=== PATIENT | male | born 1990 | race African-American/Black ===

== ENCOUNTER 2018-02-11 22:04 | Emergency (ER) | payer MEDICAID ==
[~2018-02-11] VITALS: Ht 182.9 cm; Wt 100.0 kg
[2018-02-11 22:24] LABS: MEAN CORPUSCULAR HEMOGLOBIN 29.9 pg (27.5-34.5); MEAN CORPUSCULAR HGB CONC 33.2 g/dL (33.2-36.2); MEAN CORPUSCULAR VOLUME 89.8 fL (81-97); MEAN PLATELET VOLUME 8.4 fL (7.4-10.4); PLATELET COUNT 194 x10^3/uL (130-400); RED BLOOD COUNT 4.86 x10^6/uL (4.38-5.82); RED CELL DISTRIBUTION WIDTH 15.3 % (9.4-14.8)
[2018-02-11] MEDS ORDERED: FAMOTIDINE 20 MG/2 ML IVP ONE (22:30)
[2018-02-11] MEDS ORDERED: PROMETHAZINE 25 MG/ML, 1ML IM ONE (22:30)
[2018-02-11] MEDS ORDERED: MAALOX/HYOSCYAMINE/LIDOCAINE 45 ML BTL PO ONE (22:30)
[2018-02-11] MEDS ORDERED: ONDANSETRON 2MG/ML, 2ML IVPush ONE (22:30)
[2018-02-11] MEDS ORDERED: ONDANSETRON 2MG/ML, 2ML ONE (22:33)
[2018-02-11] MEDS ORDERED: FAMOTIDINE 20 MG/2 ML ONE (22:34)
[2018-02-11] MEDS ORDERED: MAALOX/HYOSCYAMINE/LIDOCAINE 45 ML BTL ONE (22:34)
[2018-02-11] MEDS ORDERED: PROMETHAZINE 25 MG/ML, 1ML ONE (22:34)
[2018-02-11 22:36] LABS: ALANINE AMINOTRANSFERASE 18 U/L (12-78); ALBUMIN 4.1 g/dL (3.4-5.0); ANION GAP 8 mmol/L (5-15); CALCIUM 9.5 mg/dL (8.5-10.1); CHLORIDE 109 mmol/L (98-107)
[2018-02-11 22:39] LABS: ALKALINE PHOSPHATASE 63 U/L (45-117); BILIRUBIN,TOTAL 0.2 mg/dL (0.2-1.0); CREATININE 1.09 mg/dL (0.7-1.3); TOTAL PROTEIN 8.3 g/dL (6.4-8.2)
[2018-02-11 22:48] LABS: BASOPHILS # (AUTO) 0.04 x10^3/uL (0-0.1); BASOPHILS % (AUTO) 0 % (0-1); EOSINOPHILS % (AUTO) 0 % (1-7); LYMPHOCYTES # (AUTO) 0.75 x10^3/uL (1-3.4); LYMPHOCYTES % (AUTO) 7 % (22-44); MD SCAN; MONOCYTES # (AUTO) 0.24 x10^3/uL (0.2-0.8); MONOCYTES % (AUTO) 2 % (2-9); NEUTROPHILS # (AUTO) 10.19 x10^3/uL (1.8-6.8); NEUTROPHILS % (AUTO) 91 % (42-75)
[2018-02-11] MEDS ORDERED: OMNIPAQUE 350 MG/ML, 100ML BOTTLE ONE (23:01)
[2018-02-11] MEDS ORDERED: PROM25SU34 RC (23:13)
[2018-02-11] MEDS ORDERED: SUCR1TAB33 PO (23:13)
[2018-02-12 00:29] VITALS: BP 125/84
== END 2018-02-12 00:31 | disposition home or self-care (01) ==
LOC: ED 22:19
DX: K29.00 Acute gastritis without bleeding (principal); Z87.891 Personal history of nicotine dependence; Z79.899 Other long term (current) drug therapy
CPT/HCPCS: 36415; 74022; 74177; 80053; 80307; 83690; 85025; 86677; 93005; 96372; 96374; 96375; 99285; J2405; J2550; Q9967; S0028

== ENCOUNTER 2018-02-12 10:49 | Emergency (ER) | payer MEDICAID ==
[~2018-02-12] VITALS: Ht 175.3 cm; Wt 118.0 kg
[~2018-02-12 10:49] MED LIST: PROM25SU34 RC; SUCR1TAB33 PO
[2018-02-12] MEDS ORDERED: MORPHINE SULFATE 4 MG/ML, 1ML ONE ×2 (11:10→11:59)
[2018-02-12] MEDS ORDERED: ONDANSETRON 2MG/ML, 2ML ONE (11:10)
[2018-02-12] MEDS ORDERED: MAALOX/HYOSCYAMINE/LIDOCAINE 45 ML BTL ONE (11:10)
[2018-02-12 11:27] LABS: MEAN CORPUSCULAR HEMOGLOBIN 29.6 pg (27.5-34.5); MEAN CORPUSCULAR HGB CONC 33.2 g/dL (33.2-36.2); MEAN CORPUSCULAR VOLUME 89.2 fL (81-97); MEAN PLATELET VOLUME 8.4 fL (7.4-10.4); PLATELET COUNT 217 x10^3/uL (130-400); RED BLOOD COUNT 5.05 x10^6/uL (4.38-5.82); RED CELL DISTRIBUTION WIDTH 15.5 % (9.4-14.8)
[2018-02-12] MEDS ORDERED: MORPHINE SULFATE 4 MG/ML, 1ML IVPush PRN (11:30)
[2018-02-12] MEDS ORDERED: MAALOX/HYOSCYAMINE/LIDOCAINE 45 ML BTL PO ONE (11:30)
[2018-02-12] MEDS ORDERED: SODIUM CHLORIDE 0.9% 1,000ML IVBOLUS ONE (11:30)
[2018-02-12] MEDS ORDERED: SODIUM CHLORIDE FLUSH 10ML SYR IVF ONE (11:30)
[2018-02-12] MEDS ORDERED: ONDANSETRON 2MG/ML, 2ML IVPush ONE (11:30)
[2018-02-12 11:38] LABS: ALANINE AMINOTRANSFERASE 20 U/L (12-78); ALBUMIN 3.9 g/dL (3.4-5.0); ANION GAP 11 mmol/L (5-15); CALCIUM 9.3 mg/dL (8.5-10.1); CHLORIDE 109 mmol/L (98-107); CREATININE 1.02 mg/dL (0.7-1.3)
[2018-02-12 11:40] LABS: ALKALINE PHOSPHATASE 70 U/L (45-117); BILIRUBIN,TOTAL 0.5 mg/dL (0.2-1.0); TOTAL PROTEIN 8.3 g/dL (6.4-8.2)
[2018-02-12 12:24] LABS: BASOPHILS # (AUTO) 0.01 x10^3/uL (0-0.1); BASOPHILS % (AUTO) 0 % (0-1); EOSINOPHILS # (AUTO) 0.01 x10^3/uL (0-0.4); EOSINOPHILS % (AUTO) 0 % (1-7); LYMPHOCYTES # (AUTO) 1.23 x10^3/uL (1-3.4); LYMPHOCYTES % (AUTO) 11 % (22-44); MD SCAN; MONOCYTES # (AUTO) 0.53 x10^3/uL (0.2-0.8); MONOCYTES % (AUTO) 5 % (2-9); NEUTROPHILS # (AUTO) 9.41 x10^3/uL (1.8-6.8); NEUTROPHILS % (AUTO) 84 % (42-75)
[2018-02-12 12:46] VITALS: BP 149/105
[2018-02-12 13:25] LABS: TROPONIN I < 0.015 ng/mL (0.000-0.045)
== END 2018-02-12 12:52 | disposition home or self-care (01) ==
LOC: ED 12:40
DX: K29.00 Acute gastritis without bleeding (principal); Z87.891 Personal history of nicotine dependence
CPT/HCPCS: 36415; 80053; 83605; 83690; 84484; 85025; 93005; 96361; 96374; 96375; 99285; J2405; J7030

== ENCOUNTER 2018-04-17 13:24 | Emergency (ER) | payer MEDICAID ==
[~2018-04-17] VITALS: Ht 177.8 cm; Wt 150.0 kg
[2018-04-17] MEDS ORDERED: SODIUM CHLORIDE 0.9% 1,000 ML IV ONE (13:28)
[2018-04-17] MEDS ORDERED: SODIUM CHLORIDE 0.9% 1,000ML IVBOLUS ONE (13:30)
[2018-04-17] MEDS ORDERED: SODIUM CHLORIDE FLUSH 10ML SYR IVF ONE (13:30)
[2018-04-17] MEDS ORDERED: PROMETHAZINE 25 MG/ML, 1ML IM ONE (13:30)
[2018-04-17] MEDS ORDERED: PROMETHAZINE 25 MG/ML, 1ML ONE (13:37)
[2018-04-17 14:00] LABS: BASOPHILS # (AUTO) 0.03 x10^3/uL (0-0.1); BASOPHILS % (AUTO) 0 % (0-1); EOSINOPHILS # (AUTO) 0.06 x10^3/uL (0-0.4); EOSINOPHILS % (AUTO) 1 % (1-7); LYMPHOCYTES # (AUTO) 1.44 x10^3/uL (1-3.4); LYMPHOCYTES % (AUTO) 18 % (22-44); MD NO; MEAN CORPUSCULAR HEMOGLOBIN 29.9 pg (27.5-34.5); MEAN CORPUSCULAR HGB CONC 33.4 g/dL (33.2-36.2); MEAN CORPUSCULAR VOLUME 89.7 fL (81-97); MEAN PLATELET VOLUME 8.6 fL (7.4-10.4); MONOCYTES # (AUTO) 0.51 x10^3/uL (0.2-0.8); MONOCYTES % (AUTO) 6 % (2-9); NEUTROPHILS # (AUTO) 5.93 x10^3/uL (1.8-6.8); NEUTROPHILS % (AUTO) 74 % (42-75); PLATELET COUNT 199 x10^3/uL (130-400); RED BLOOD COUNT 5.13 x10^6/uL (4.38-5.82); RED CELL DISTRIBUTION WIDTH 15.1 % (9.4-14.8)
[2018-04-17 14:12] LABS: CHLORIDE 108 mmol/L (98-107)
[2018-04-17 14:13] LABS: ALANINE AMINOTRANSFERASE 22 U/L (12-78); ALBUMIN 4.1 g/dL (3.4-5.0); ANION GAP 10 mmol/L (5-15); CALCIUM 9.4 mg/dL (8.5-10.1); CREATININE 1.02 mg/dL (0.7-1.3)
[2018-04-17 14:15] LABS: ALKALINE PHOSPHATASE 56 U/L (45-117); BILIRUBIN,TOTAL 0.5 mg/dL (0.2-1.0); TOTAL PROTEIN 7.9 g/dL (6.4-8.2)
[2018-04-17 14:45] LABS: MICROSCOPIC NOT IND
[2018-04-17 14:46] LABS: CULTURE INDICATED? NO
[2018-04-17] MEDS ORDERED: MAALOX/HYOSCYAMINE/LIDOCAINE 45 ML BTL ONE (15:16)
[2018-04-17 15:22] VITALS: BP 136/87
[2018-04-17] MEDS ORDERED: MAALOX/HYOSCYAMINE/LIDOCAINE 45 ML BTL PO ONE (15:30)
== END 2018-04-17 16:23 | disposition home or self-care (01) ==
LOC: ED 16:18
DX: K29.00 Acute gastritis without bleeding (principal)
CPT/HCPCS: 36415; 74022; 76700; 80053; 81003; 83690; 85025; 96360; 96361; 96372; 99285; J2550; J7030

== ENCOUNTER 2018-04-19 20:48 | Emergency (ER) | payer MEDICAID ==
[~2018-04-19] VITALS: Ht 175.3 cm; Wt 114.2 kg
[2018-04-19] MEDS ORDERED: PROMETHAZINE 25 MG/ML, 1ML ONE (21:26)
[2018-04-19] MEDS ORDERED: PROMETHAZINE 25 MG/ML, 1ML IM ONE (21:30)
[2018-04-19] MEDS ORDERED: KETOROLAC 30 MG/1 ML ONE (21:45)
[2018-04-19 21:50] LABS: ALANINE AMINOTRANSFERASE 28 U/L (12-78); ALBUMIN 3.9 g/dL (3.4-5.0); ANION GAP 8 mmol/L (5-15); CALCIUM 9.2 mg/dL (8.5-10.1); CHLORIDE 103 mmol/L (98-107); CREATININE 0.95 mg/dL (0.7-1.3)
[2018-04-19 21:52] LABS: ALKALINE PHOSPHATASE 52 U/L (45-117); BILIRUBIN,TOTAL 0.4 mg/dL (0.2-1.0); TOTAL PROTEIN 7.5 g/dL (6.4-8.2)
[2018-04-19] MEDS ORDERED: KETOROLAC 30 MG/1 ML IVPush ONE (22:00)
[2018-04-19] MEDS ORDERED: KETOROLAC 30 MG/1 ML IM ONE (22:00)
[2018-04-19] MEDS ORDERED: MORPHINE SULFATE 4 MG/ML, 1ML ONE (22:05)
[2018-04-19 22:06] LABS: BASOPHILS # (AUTO) 0.01 x10^3/uL (0-0.1); BASOPHILS % (AUTO) 0 % (0-1); EOSINOPHILS % (AUTO) 0 % (1-7); LYMPHOCYTES # (AUTO) 1.16 x10^3/uL (1-3.4); LYMPHOCYTES % (AUTO) 16 % (22-44); MD SCAN; MEAN CORPUSCULAR HGB CONC 33.3 g/dL (33.2-36.2); MEAN PLATELET VOLUME 8.4 fL (7.4-10.4); MONOCYTES # (AUTO) 0.53 x10^3/uL (0.2-0.8); MONOCYTES % (AUTO) 7 % (2-9); NEUTROPHILS % (AUTO) 77 % (42-75); PLATELET COUNT 210 x10^3/uL (130-400); RED BLOOD COUNT 4.93 x10^6/uL (4.38-5.82); RED CELL DISTRIBUTION WIDTH 14.9 % (9.4-14.8)
[2018-04-19] MEDS ORDERED: MORPHINE SULFATE 4 MG/ML, 1ML IVPush PRN (22:30)
[2018-04-19] MEDS ORDERED: MAALOX/HYOSCYAMINE/LIDOCAINE 45 ML BTL PO ONE (22:30)
[2018-04-19] MEDS ORDERED: MAALOX/HYOSCYAMINE/LIDOCAINE 45 ML BTL ONE (22:54)
[2018-04-19 23:38] VITALS: BP 132/82
== END 2018-04-19 23:40 | disposition home or self-care (01) ==
LOC: ED 21:02
DX: G89.29 Other chronic pain (principal); R10.84 Generalized abdominal pain
CPT/HCPCS: 36415; 74021; 80053; 83690; 85025; 96372; 96374; 96375; 99285; J1885; J2550

== ENCOUNTER 2018-04-22 11:06 | Emergency (ER) | payer MEDICAID ==
[~2018-04-22] VITALS: Ht 175.3 cm; Wt 113.5 kg
[2018-04-22 11:41] LABS: INTERNATIONAL NORMALIZED RATIO 1.1 (0.93-1.1); PROTHROMBIN TIME 11.4 Seconds (9.6-11.5)
[2018-04-22] MEDS ORDERED: LORazepam 2 MG/ML, 1ML IVPush ONE (12:00)
[2018-04-22] MEDS ORDERED: LORazepam 2 MG/ML, 1ML ONE (12:05)
[2018-04-22] MEDS ORDERED: OMEP20TA62 PO (12:18)
[2018-04-22 12:25] LABS: MEAN CORPUSCULAR HEMOGLOBIN 29.4 pg (27.5-34.5); MEAN CORPUSCULAR HGB CONC 33.2 g/dL (33.2-36.2); MEAN CORPUSCULAR VOLUME 88.3 fL (81-97); MEAN PLATELET VOLUME 8.1 fL (7.4-10.4); PLATELET COUNT 214 x10^3/uL (130-400); RED CELL DISTRIBUTION WIDTH 14.3 % (9.4-14.8)
[2018-04-22 12:27] LABS: BASOPHILS # (AUTO) 0.01 x10^3/uL (0-0.1); BASOPHILS % (AUTO) 0 % (0-1); EOSINOPHILS # (AUTO) 0.01 x10^3/uL (0-0.4); EOSINOPHILS % (AUTO) 0 % (1-7); LYMPHOCYTES % (AUTO) 23 % (22-44); MD SCAN; MONOCYTES # (AUTO) 0.59 x10^3/uL (0.2-0.8); MONOCYTES % (AUTO) 8 % (2-9); NEUTROPHILS # (AUTO) 5.01 x10^3/uL (1.8-6.8); NEUTROPHILS % (AUTO) 69 % (42-75)
[2018-04-22 14:28] VITALS: BP 138/91
== END 2018-04-22 14:33 | disposition home or self-care (01) ==
LOC: ED 13:03
DX: F41.1 Generalized anxiety disorder (principal); R06.4 Hyperventilation; Z86.73 Personal history of transient ischemic attack (TIA), and cerebral infarction without residual deficits; R79.1 Abnormal coagulation profile
CPT/HCPCS: 36415; 70450; 70551; 80047; 85025; 85610; 85730; 93005; 96374; 99285; J2060

== ENCOUNTER 2019-01-11 11:55 | Emergency (ER) | payer MEDICAID ==
[~2019-01-11] VITALS: Ht 175.3 cm; Wt 120.0 kg
[~2019-01-11 11:55] MED LIST changes: +OMEP20TA62 PO
--- NOTE | 2019-01-11 12:11 | NUR ---
jasper, report received from ems. pt c/o n/v and generalized abd pain starting this am; hx same. pt is very anxious, writhing in pain. at bedside. all monitors in place. cheyenne walsh at bedside to evaluate. call light in reach.
--- NOTE | 2019-01-11 12:28 | NUR ---
pt moving too much to obtain EKG at this time
--- NOTE | 2019-01-11 12:29 | NUR ---
pt to xray
[2019-01-11] MEDS ORDERED: PROMETHAZINE 25 MG/ML, 1ML IM ONE (12:30)
[2019-01-11] MEDS ORDERED: FAMOTIDINE 20 MG/2 ML IVP ONE (12:30)
[2019-01-11] MEDS ORDERED: PROMETHAZINE 25 MG/ML, 1ML ONE (12:41)
[2019-01-11] MEDS ORDERED: FAMOTIDINE 20 MG/2 ML ONE (12:41)
[2019-01-11 12:42] LABS: BASOPHILS # (AUTO) 0.04 x10^3/uL (0-0.1); BASOPHILS % (AUTO) 0 % (0-1); EOSINOPHILS # (AUTO) 0.02 x10^3/uL (0-0.4); EOSINOPHILS % (AUTO) 0 % (1-7); LYMPHOCYTES % (AUTO) 14 % (22-44); MD NO; MEAN CORPUSCULAR HEMOGLOBIN 30.5 pg (27.5-34.5); MEAN CORPUSCULAR VOLUME 89.6 fL (81-97); MEAN PLATELET VOLUME 8.1 fL (7.4-10.4); MONOCYTES # (AUTO) 0.32 x10^3/uL (0.2-0.8); MONOCYTES % (AUTO) 3 % (2-9); NEUTROPHILS # (AUTO) 7.91 x10^3/uL (1.8-6.8); NEUTROPHILS % (AUTO) 82 % (42-75); PLATELET COUNT 236 x10^3/uL (130-400); RED BLOOD COUNT 5.21 x10^6/uL (4.38-5.82); RED CELL DISTRIBUTION WIDTH 14.4 % (9.4-14.8)
[2019-01-11 12:50] LABS: ALANINE AMINOTRANSFERASE 22 U/L (12-78); ALBUMIN 4.6 g/dL (3.4-5.0); ANION GAP 10 mmol/L (5-15); CALCIUM 10.1 mg/dL (8.5-10.1); CHLORIDE 107 mmol/L (98-107); CREATININE 1.19 mg/dL (0.7-1.3)
[2019-01-11 12:52] LABS: ALKALINE PHOSPHATASE 72 U/L (45-117); BILIRUBIN,TOTAL 0.5 mg/dL (0.2-1.0); TOTAL PROTEIN 8.8 g/dL (6.4-8.2)
[2019-01-11] MEDS ORDERED: MAALOX/HYOSCYAMINE/LIDOCAINE 45 ML BTL ONE (13:09)
--- NOTE | 2019-01-11 13:12 | NUR ---
Pt medicated per emar, at this time n/v resolved. pt's anxiety reduced. pt a&o, resps even and unlabored. nsr on wire stretcher. call light in reach. at bedside. pt given GI cocktail with RN education. vss. awaiting MD reassessment and dispo.
[2019-01-11] MEDS ORDERED: MAALOX/HYOSCYAMINE/LIDOCAINE 45 ML BTL PO ONE (13:30)
--- NOTE | 2019-01-11 13:35 | NUR ---
Pt tolerated GI cocktail well with no subsequent emesis. pt reports abd pain improved. pt resting on gurney, resps even and unlabored. nsr on school lunch monitor. ERP Rob at bedside to reassess pt and update with results and POC.
--- NOTE | 2019-01-11 14:13 | NUR ---
pt and spouse given dc instructions and script. pt and spouse educated regarding dc rx for phenergan, carafate and prilosec. pt has been sleeping since MD reassessment. after IV removed and pt got dressed, pt began to have nausea and dry heaves again, however pt is not having any emesis. Pt and spouse decline MD reassessment and state they would rather go home at this time. pt a&o, resps even and unlabored, ambulatory with steady gait. pt given wc escort to dc.
--- NOTE | 2019-01-11 14:29 | NUR ---
at de desk, pt continued to have nausea and dry heaving. pt and spouse changed mind and request re-phyllis. AGNIESZKA Rivas notified. ativan and IVF orders received. Addendum: 01/11/19 at 1430 by HARSHAL at de desk, pt continued to have nausea and dry heaving. pt and spouse changed mind and request re-phyllis. pt brought back to room 36. AGNIESZKA Rivas notified. ativan and IVF orders received.
[2019-01-11] MEDS ORDERED: LORazepam 2 MG/ML, 1ML IVPush ONE (14:30)
[2019-01-11] MEDS ORDERED: SODIUM CHLORIDE 0.9% 1,000ML IVBOLUS ONE (14:30)
[2019-01-11] MEDS ORDERED: SODIUM CHLORIDE FLUSH 10ML SYR IVF ONE (14:30)
[2019-01-11] MEDS ORDERED: LORazepam 2 MG/ML, 1ML ONE (14:44)
--- NOTE | 2019-01-11 14:59 | NUR ---
PIV PLACED BY TASK RN PEDRO PABLO, PT MEDICATED PER EMAR. TOLERATED WELL. PT NOW SLEEPING ON GURNEY, RESPS EVEN AND UNLABORED. BP AND SPO2 MONITORS IN PLACE. AT BEDSIDE. IVF INFUSING.
[2019-01-11 16:07] VITALS: BP 114/73
--- NOTE | 2019-01-11 16:07 | NUR ---
PT REPORTS SYMPTOMS RESOLVED, REQUESTING DC. AGNIESZKA JAMISON NOTIFIED. AGNIESZKA INSTRUCTED RN TO DC PT. NO CHANGES TO DC INSTRUCTIONS OR PRESCRIPTIONS MADE. PT IS AWAKE, ALERT AND ORIENTED. RESPS EVEN AND UNLABORED. NO N/V AT TIME OF DC. PIV DC'D WITH TIP INTACT. NO PIV IN PLACE AT TIME OF DC. PT AMB TO DC DESK WITH STEADY GAIT, ACCOMPANIED BY WHO IS TO DRIVE HIM HOME. PT EDUCATED NOT TO DRIVE TODAY D/T MEDS GIVEN. DC INSTRUCTIONS AND PRESCRIPTIONS REVIEWED. PEEWEE AT DC.
== END 2019-01-11 14:14 | disposition home or self-care (01) ==
LOC: ED 13:25
DX: K29.00 Acute gastritis without bleeding (principal)
CPT/HCPCS: 36415; 74021; 80053; 83690; 85025; 93005; 96361; 96372; 96374; 96375; 99284; J2060; J2550; J3490; J7030

== ENCOUNTER 2019-02-16 09:06 | Emergency (ER) | payer MEDICAID ==
[~2019-02-16] VITALS: Ht 175.3 cm; Wt 118.8 kg
[2019-02-16] MEDS ORDERED: FAMOTIDINE 20 MG/2 ML ONE (09:19)
[2019-02-16] MEDS ORDERED: HYDROmorphone 2 MG/ML, 1ML ONE (09:19)
[2019-02-16] MEDS ORDERED: MAALOX/HYOSCYAMINE/LIDOCAINE 45 ML BTL ONE (09:19)
[2019-02-16] MEDS ORDERED: PROMETHAZINE 25 MG/ML, 1ML ONE (09:19)
[2019-02-16] MEDS ORDERED: PROMETHAZINE 25 MG/ML, 1ML IM ONE (09:30)
[2019-02-16] MEDS ORDERED: PLEASE ENTER HEIGHT AND WEIGHT MC SCH (09:30)
[2019-02-16] MEDS ORDERED: SODIUM CHLORIDE FLUSH 10ML SYR IVF ONE (09:30)
[2019-02-16] MEDS ORDERED: HYDROmorphone 2 MG/ML, 1ML IVPush PRN (09:30)
[2019-02-16] MEDS ORDERED: FAMOTIDINE 20 MG/2 ML IVP ONE (09:30)
[2019-02-16] MEDS ORDERED: MAALOX/HYOSCYAMINE/LIDOCAINE 45 ML BTL PO ONE (09:30)
--- NOTE | 2019-02-16 10:04 | NUR ---
LANCE RN NOTE: PATIENT DESAT TO 84%, PLACED ON 2 L NC WITH IMPROVEMENT OF PULSE OX TO 98%
[2019-02-16 10:05] LABS: BASOPHILS # (AUTO) 0.02 x10^3/uL (0-0.1); BASOPHILS % (AUTO) 0 % (0-1); EOSINOPHILS % (AUTO) 0 % (1-7); LYMPHOCYTES # (AUTO) 1.15 x10^3/uL (1-3.4); LYMPHOCYTES % (AUTO) 12 % (22-44); MD NO; MEAN CORPUSCULAR HEMOGLOBIN 29.7 pg (27.5-34.5); MEAN CORPUSCULAR HGB CONC 33.1 g/dL (33.2-36.2); MEAN PLATELET VOLUME 8.1 fL (7.4-10.4); MONOCYTES # (AUTO) 0.57 x10^3/uL (0.2-0.8); MONOCYTES % (AUTO) 6 % (2-9); NEUTROPHILS % (AUTO) 82 % (42-75); PLATELET COUNT 275 x10^3/uL (130-400); RED BLOOD COUNT 5.62 x10^6/uL (4.38-5.82)
[2019-02-16] MEDS ORDERED: HYDROmorphone 1 MG/ML, 1ML ONE (10:10)
[2019-02-16 10:11] LABS: ALANINE AMINOTRANSFERASE 20 U/L (12-78); ALBUMIN 4.4 g/dL (3.4-5.0); ANION GAP 10 mmol/L (5-15); CALCIUM 9.5 mg/dL (8.5-10.1); CHLORIDE 103 mmol/L (98-107); CREATININE 1.12 mg/dL (0.7-1.3)
--- NOTE | 2019-02-16 10:15 | NUR ---
PARVIZ REFUSES DILDEMI AFTER MICHEAL STATES THAT SHE DOESN'T WANT PATIENT TO HAVE NARCOTIC. PATIENT ASKS FOR SALINE.
[2019-02-16 10:16] LABS: ALKALINE PHOSPHATASE 65 U/L (45-117); BILIRUBIN,TOTAL 0.5 mg/dL (0.2-1.0); TOTAL PROTEIN 8.6 g/dL (6.4-8.2); TROPONIN I < 0.015 ng/mL (0.000-0.045)
[2019-02-16] MEDS ORDERED: SODIUM CHLORIDE 0.9%, 500ML IVBOLUS ONE (10:30)
[2019-02-16] MEDS ORDERED: KETOROLAC 30 MG/1 ML IVPush ONE (11:00)
[2019-02-16 11:29] VITALS: BP 143/97
[2019-02-16] MEDS ORDERED: KETOROLAC 30 MG/1 ML ONE (11:55)
--- NOTE | 2019-02-16 12:02 | NUR ---
Pt medicated as per emar for 03/05 CP. Given po fluids.
[2019-02-16] MEDS ORDERED: METOCLOPRAMIDE 5 MG/ML, 2ML ONE (12:11)
--- NOTE | 2019-02-16 12:12 | NUR ---
Entered room to d/c IV, complete d/c process & pt is vomiting po fluids given. Repositioned in bed, given emesis bag, Dr. Hurtado notified & order for additional antiemetic being placed.
--- NOTE | 2019-02-16 12:29 | NUR ---
Provided medication per EMAR for nausea and vomitting.
[2019-02-16] MEDS ORDERED: METOCLOPRAMIDE 5 MG/ML, 2ML IVPush ONE (12:30)
--- NOTE | 2019-02-16 12:36 | NUR ---
Pt tolerated PO challenge post medication per EMAR. PT passed PO challenge. PIV removed. PT asking, "can I go home?". Pt removed all monitors and hospital gown and got dressed prior to ED RN entering room. ED MD Aware.
--- NOTE | 2019-02-16 12:47 | NUR ---
Patient given discharge instructions and they have confirmed that they understand the instructions. Patient requested to be pushed in wheelchair to discharge due to "I am super relaxed." Pt and fiance left with all personal belongings, discharge paperwork, and prescription.
== END 2019-02-16 12:51 | disposition home or self-care (01) ==
LOC: ED 09:36
DX: K20.9 Esophagitis, unspecified (principal); R07.2 Precordial pain; F41.1 Generalized anxiety disorder; E86.0 Dehydration
CPT/HCPCS: 36415; 71045; 80053; 83690; 84484; 85025; 93005; 96361; 96372; 96374; 96375; 99284; J1885; J2550; J2765; J3490; J7040

== ENCOUNTER 2019-03-22 07:08 | Emergency (ER) | payer MEDICAID ==
[~2019-03-22] VITALS: Ht 172.7 cm; Wt 115.0 kg
[2019-03-22] MEDS ORDERED: FAMO-79 PO (07:19)
--- NOTE | 2019-03-22 07:22 | NUR ---
PT BIB [facility] FOR N/V X3-4 TIMES LAST NIGHT. PT WITH BACK PAIN. PT A&OX4. PT HYPERVENTILATING AND TOLD TO SLOW HIS BREATHING DOWN. AT BEDSIDE. PA AT BEDSIDE AND ASSESSING PT. ASSESSMENT COMPLETED. IV STARTED IN FIELD AND FENTYNL AND ZOFRAN GIVEN BY [facility]. PT PLACED ON O2 MONITOR AND BP MONITOR. 2 SIDE RAILS UP. CALL LIGHT IN REACH
[2019-03-22] MEDS ORDERED: PROMETHAZINE 25 MG/ML, 1ML ONE (07:27)
[2019-03-22] MEDS ORDERED: KETOROLAC 30 MG/1 ML ONE (07:27)
[2019-03-22] MEDS ORDERED: FAMOTIDINE 20 MG/2 ML ONE (07:27)
[2019-03-22] MEDS ORDERED: FAMOTIDINE 20 MG/2 ML IVPush ONE (07:30)
[2019-03-22] MEDS ORDERED: PROMETHAZINE 25 MG/ML, 1ML IM ONE (07:30)
[2019-03-22] MEDS ORDERED: KETOROLAC 30 MG/1 ML IVPush ONE (07:30)
[2019-03-22] MEDS ORDERED: LORazepam 2 MG/ML, 1ML ONE (07:45)
--- NOTE | 2019-03-22 07:50 | NUR ---
PT VERY ANXIOUS AND VOMITTING. ATIVAN 1 MG GIVEN IV.
[2019-03-22 07:54] LABS: BASOPHILS % (AUTO) 0 % (0-1); EOSINOPHILS % (AUTO) 0 % (1-7); LYMPHOCYTES # (AUTO) 1.28 x10^3/uL (1-3.4); LYMPHOCYTES % (AUTO) 12 % (22-44); MD NO; MEAN CORPUSCULAR HEMOGLOBIN 29.7 pg (27.5-34.5); MEAN CORPUSCULAR HGB CONC 33.2 g/dL (33.2-36.2); MEAN CORPUSCULAR VOLUME 89.4 fL (81-97); MEAN PLATELET VOLUME 8.2 fL (7.4-10.4); MONOCYTES # (AUTO) 0.56 x10^3/uL (0.2-0.8); MONOCYTES % (AUTO) 5 % (2-9); NEUTROPHILS # (AUTO) 8.76 x10^3/uL (1.8-6.8); NEUTROPHILS % (AUTO) 83 % (42-75); PLATELET COUNT 239 x10^3/uL (130-400); RED BLOOD COUNT 5.39 x10^6/uL (4.38-5.82); RED CELL DISTRIBUTION WIDTH 14.8 % (9.4-14.8)
[2019-03-22] MEDS ORDERED: LORazepam 2 MG/ML, 1ML IVPush ONE (08:00)
[2019-03-22 08:02] LABS: ALANINE AMINOTRANSFERASE 19 U/L (12-78); ALBUMIN 4.6 g/dL (3.4-5.0); ANION GAP 8 mmol/L (5-15); CALCIUM 9.8 mg/dL (8.5-10.1); CHLORIDE 106 mmol/L (98-107); CREATININE 1.06 mg/dL (0.7-1.3)
[2019-03-22 08:04] LABS: ALKALINE PHOSPHATASE 57 U/L (45-117); BILIRUBIN,TOTAL 0.6 mg/dL (0.2-1.0); TOTAL PROTEIN 8.4 g/dL (6.4-8.2)
--- NOTE | 2019-03-22 08:44 | NUR ---
PATIENT SLEEPING AT THIS TIME
[2019-03-22 08:49] VITALS: BP 146/98
--- NOTE | 2019-03-22 08:56 | NUR ---
REPORT GIVEN TO MEL MORAN. PT RESTING AT THIS TIME
--- NOTE | 2019-03-22 09:05 | NUR ---
ua collected and sent. pt resting in room wtih at bedside. vss. no needs at this time. call light within reach. awaiting lab results.
[2019-03-22 09:39] LABS: MICROSCOPIC INDICATED
--- NOTE | 2019-03-22 09:43 | NUR ---
edmd and edpa to bs to update on poc.
[2019-03-22 10:01] LABS: CULTURE INDICATED? NO
== END 2019-03-22 10:52 | disposition home or self-care (01) ==
LOC: ED 08:34
DX: K29.00 Acute gastritis without bleeding (principal); K20.9 Esophagitis, unspecified
CPT/HCPCS: 36415; 80053; 81001; 83690; 85025; 96372; 96374; 96375; 99283; J1885; J2060; J2550; J3490

== ENCOUNTER 2019-05-09 05:22 | Emergency (ER) | payer MEDICAID ==
[~2019-05-09] VITALS: Ht 175.3 cm; Wt 109.0 kg
[~2019-05-09 05:22] MED LIST changes: +FAMO-79 PO
--- NOTE | 2019-05-09 05:33 | NUR ---
jasper. report received from ems. pt c/o n/v x 48 hours. hx of gastric reflex. pt states "i can't breath." pt's spo2 is >98%. pt's aox4. resps even and unlabored. bp/spo2 monitors in place. call light within reach. pa at bedside to evaluate at this time.
[2019-05-09] MEDS ORDERED: MORPHINE SULFATE 4 MG/ML, 1ML ONE (05:41)
[2019-05-09] MEDS ORDERED: FAMOTIDINE 20 MG/2 ML ONE (05:41)
[2019-05-09] MEDS ORDERED: METOCLOPRAMIDE 5 MG/ML, 2ML ONE (05:41)
--- NOTE | 2019-05-09 05:53 | NUR ---
pt medicated per emar. pt tolerated well.
[2019-05-09 05:55] LABS: BASOPHILS # (AUTO) 0.03 x10^3/uL (0-0.1); BASOPHILS % (AUTO) 0 % (0-1); EOSINOPHILS % (AUTO) 0 % (1-7); LYMPHOCYTES # (AUTO) 1.07 x10^3/uL (1-3.4); LYMPHOCYTES % (AUTO) 10 % (22-44); MD NO; MEAN CORPUSCULAR HGB CONC 32.7 g/dL (33.2-36.2); MEAN CORPUSCULAR VOLUME 91.8 fL (81-97); MEAN PLATELET VOLUME 8.6 fL (7.4-10.4); MONOCYTES # (AUTO) 0.59 x10^3/uL (0.2-0.8); MONOCYTES % (AUTO) 6 % (2-9); NEUTROPHILS # (AUTO) 8.82 x10^3/uL (1.8-6.8); NEUTROPHILS % (AUTO) 84 % (42-75); PLATELET COUNT 247 x10^3/uL (130-400); RED BLOOD COUNT 5.32 x10^6/uL (4.38-5.82); RED CELL DISTRIBUTION WIDTH 14.3 % (9.4-14.8)
--- NOTE | 2019-05-09 05:55 | NUR ---
urinal at bedside.
[2019-05-09] MEDS ORDERED: SODIUM CHLORIDE FLUSH 10ML SYR IVF ONE (06:00)
[2019-05-09] MEDS ORDERED: METOCLOPRAMIDE 5 MG/ML, 2ML IVPush ONE (06:00)
[2019-05-09] MEDS ORDERED: SODIUM CHLORIDE 0.9% 1,000ML IVBOLUS ONE (06:00)
[2019-05-09] MEDS ORDERED: FAMOTIDINE 20 MG/2 ML IVP ONE (06:00)
[2019-05-09] MEDS ORDERED: MORPHINE SULFATE 4 MG/ML, 1ML IVPush PRN (06:00)
[2019-05-09 06:02] LABS: ALANINE AMINOTRANSFERASE 17 U/L (12-78); ALBUMIN 4.5 g/dL (3.4-5.0); ANION GAP 11 mmol/L (5-15); CALCIUM 9.9 mg/dL (8.5-10.1); CHLORIDE 109 mmol/L (98-107)
[2019-05-09 06:05] LABS: ALKALINE PHOSPHATASE 69 U/L (45-117); BILIRUBIN,TOTAL 0.4 mg/dL (0.2-1.0); TOTAL PROTEIN 8.7 g/dL (6.4-8.2)
--- NOTE | 2019-05-09 06:50 | NUR ---
report given to payton/bibiana carias.
[2019-05-09 06:52] LABS: MICROSCOPIC INDICATED
[2019-05-09 06:54] LABS: CULTURE INDICATED? NO
--- NOTE | 2019-05-09 07:20 | NUR ---
REPORT RECEIVED FROM EMELY RN. PT ASSESSED AND VITALS TAKEN. PT RESTING COMFORTABLY IN GURNEY WITH SIDERAILS X [address], CALL LIGHT AND BELONGINGS WITHIN REACH , FAMILY AT BEDSIDE.
[2019-05-09 07:50] VITALS: BP 142/93
--- NOTE | 2019-05-09 07:52 | NUR ---
Patient/Caregiver given discharge instructions and they have confirmed that they understand the instructions. Patient ambulatory with steady gait.
== END 2019-05-09 07:53 | disposition home or self-care (01) ==
LOC: ED 05:54
DX: R11.14 Bilious vomiting (principal); E86.0 Dehydration; Z87.891 Personal history of nicotine dependence
CPT/HCPCS: 36415; 74022; 80053; 81001; 83690; 85025; 96361; 96374; 96375; 99284; J2270; J2765; J3490; J7030

== ENCOUNTER 2019-06-17 22:39 | Emergency (ER) | payer MEDICAID ==
[~2019-06-17] VITALS: Ht 175.3 cm; Wt 62.0 kg
[2019-06-17 22:45] VITALS: BP 156/106
[2019-06-17] MEDS ORDERED: HALOPERIDOL 5 MG/ML IM ONE (23:00)
[2019-06-17] MEDS ORDERED: KETOROLAC 30 MG/1 ML IVPush ONE (23:00)
[2019-06-17] MEDS ORDERED: KETOROLAC 30 MG/1 ML ONE (23:01)
[2019-06-17] MEDS ORDERED: HALOPERIDOL 5 MG/ML ONE (23:01)
--- NOTE | 2019-06-17 23:12 | NUR ---
Pt BIB EMS from home, c/o generalized abd pain, chest pain radiating to back since sunday evening. Reports hx of similar episodes x several years, took rectal promethazine prior to EMS arrival without relief. IV morphine and zofran given en route. Pt placed on monitor, NSR, vitals stable, medicated for pain and nausea per MD orders. Father at bedside.
[2019-06-17 23:24] LABS: BASOPHILS # (AUTO) 0.03 x10^3/uL (0-0.1); BASOPHILS % (AUTO) 0 % (0-1); EOSINOPHILS % (AUTO) 0 % (1-7); LYMPHOCYTES # (AUTO) 1.08 x10^3/uL (1-3.4); LYMPHOCYTES % (AUTO) 11 % (22-44); MD NO; MEAN CORPUSCULAR HEMOGLOBIN 29.9 pg (27.5-34.5); MEAN CORPUSCULAR HGB CONC 32.7 g/dL (33.2-36.2); MEAN CORPUSCULAR VOLUME 91.5 fL (81-97); MONOCYTES # (AUTO) 0.66 x10^3/uL (0.2-0.8); MONOCYTES % (AUTO) 7 % (2-9); NEUTROPHILS % (AUTO) 83 % (42-75); PLATELET COUNT 268 x10^3/uL (130-400); RED BLOOD COUNT 5.22 x10^6/uL (4.38-5.82); RED CELL DISTRIBUTION WIDTH 14.8 % (9.4-14.8)
[2019-06-17 23:31] LABS: ALANINE AMINOTRANSFERASE 19 U/L (12-78); ALBUMIN 4.2 g/dL (3.4-5.0); ANION GAP 9 mmol/L (5-15); CALCIUM 9.5 mg/dL (8.5-10.1); CHLORIDE 106 mmol/L (98-107); CREATININE 0.93 mg/dL (0.7-1.3)
[2019-06-17 23:35] LABS: ALKALINE PHOSPHATASE 60 U/L (45-117); BILIRUBIN,TOTAL 0.4 mg/dL (0.2-1.0); TOTAL PROTEIN 8.5 g/dL (6.4-8.2); TROPONIN I < 0.015 ng/mL (0.000-0.045)
--- NOTE | 2019-06-17 23:51 | NUR ---
Pt states pain and nausea no longer present, removed leads, BP cough and pulse oximeter, dressed in street clothes, states "I just want to go home, youre just going to tell me to follow up with my primary care and I can do that tomorrow". Education provided, waiting for results. Vitals stable, family at bedside, MD aware.
--- NOTE | 2019-06-18 00:07 | NUR ---
Pt stable for discharge to home, vitals stable, PIV removed. Exitcare provided, patient and parent verbalize understanding. Pt taken to discharge desk by NAM, ambulates w/ steady gait to front lobby.
== END 2019-06-18 00:10 | disposition home or self-care (01) ==
LOC: ED 22:59
DX: R10.12 Left upper quadrant pain (principal); R07.89 Other chest pain; F45.8 Other somatoform disorders; Z87.891 Personal history of nicotine dependence
CPT/HCPCS: 36415; 71045; 80053; 83690; 84484; 85025; 85379; 93005; 96372; 96374; 99284; J1630; J1885

== ENCOUNTER 2020-05-07 06:48 | Emergency (ER) | payer MEDICAID ==
[~2020-05-07] VITALS: Ht 172.7 cm; Wt 111.0 kg
[~2020-05-07 06:48] MED LIST changes: +METH500T7 PO
[2020-05-07] MEDS ORDERED: METOCLOPRAMIDE 5 MG/ML, 2ML ONE (07:21)
[2020-05-07] MEDS ORDERED: MAALOX/HYOSCYAMINE/LIDOCAINE 45 ML BTL ONE (07:21)
--- NOTE | 2020-05-07 07:29 | NUR ---
THIS IS A 30 YO M W/ C/O RT SIDE LOW BACK PAIN AND RUQ PAIN 9 X1 DAY. PT REPORTS NAUSEA AND VOMITING YESTERDAY. PT DENIES PAIN W/ URINATION/CP/SOB. PT RESTING ON GURNEY CONNECTED TO ALL MONITORING, VSS, NADN. PIV STARTED, LABS DRAWN, PT MEDICATED PER EMAR. CALL LIGHT IN REACH, SIDE RAILS UPX2. PT PROVIDED W/ URINAL AND EDUCATED ON NEED FOR SAMPLE.
[2020-05-07] MEDS ORDERED: SODIUM CHLORIDE 0.9% 1,000ML IVBOLUS ONE (07:30)
[2020-05-07] MEDS ORDERED: MAALOX/HYOSCYAMINE/LIDOCAINE 45 ML BTL PO ONE (07:30)
[2020-05-07] MEDS ORDERED: SODIUM CHLORIDE FLUSH 10ML SYR IVF ONE (07:30)
[2020-05-07] MEDS ORDERED: METOCLOPRAMIDE 5 MG/ML, 2ML IVPush ONE (07:30)
[2020-05-07 07:42] LABS: ALANINE AMINOTRANSFERASE 21 U/L (12-78); ALBUMIN 4.1 g/dL (3.4-5.0); ANION GAP 12 mmol/L (5-15); CALCIUM 9.5 mg/dL (8.5-10.1); CHLORIDE 100 mmol/L (98-107); CREATININE 1.01 mg/dL (0.7-1.3)
[2020-05-07 07:44] LABS: ALKALINE PHOSPHATASE 58 U/L (45-117); BILIRUBIN,TOTAL 0.6 mg/dL (0.2-1.0); TOTAL PROTEIN 8.4 g/dL (6.4-8.2)
[2020-05-07 07:45] LABS: MEAN CORPUSCULAR HEMOGLOBIN 29.8 pg (27.5-34.5); MEAN CORPUSCULAR HGB CONC 32.8 g/dL (33.2-36.2); MEAN CORPUSCULAR VOLUME 90.9 fL (81-97); MEAN PLATELET VOLUME 7.9 fL (7.4-10.4); PLATELET COUNT 282 x10^3/uL (130-400); RED CELL DISTRIBUTION WIDTH 14.9 % (9.4-14.8)
--- NOTE | 2020-05-07 07:57 | NUR ---
PT REEDUCATED ON NEED FOR UA.
--- NOTE | 2020-05-07 08:08 | NUR ---
PT REPORTS RELIEF OF PAIN W/ MEDS.
--- NOTE | 2020-05-07 08:25 | NUR ---
US IN ROOM.
[2020-05-07 08:31] LABS: BASOPHILS # (AUTO) 0.03 x10^3/uL (0-0.1); BASOPHILS % (AUTO) 0 % (0-1); EOSINOPHILS % (AUTO) 0 % (1-7); LYMPHOCYTES # (AUTO) 1.19 x10^3/uL (1-3.4); LYMPHOCYTES % (AUTO) 13 % (22-44); MD SCAN; MONOCYTES # (AUTO) 0.54 x10^3/uL (0.2-0.8); MONOCYTES % (AUTO) 6 % (2-9); NEUTROPHILS # (AUTO) 7.67 x10^3/uL (1.8-6.8); NEUTROPHILS % (AUTO) 81 % (42-75)
[2020-05-07] MEDS ORDERED: POTASSIUM CHLORIDE 20 MEQ TAB.ER.PRT ONE (08:58)
[2020-05-07 09:00] VITALS: BP 139/95
[2020-05-07] MEDS ORDERED: POTASSIUM CHLORIDE 20 MEQ TAB.ER.PRT PO ONE (09:00)
--- NOTE | 2020-05-07 09:17 | NUR ---
URINE COLLECTED AND SENT TO LAB.
[2020-05-07 09:25] LABS: MICROSCOPIC NOT IND
--- NOTE | 2020-05-07 09:50 | NUR ---
Patient given discharge instructions and they have confirmed that they understand the instructions. Patient wheeled to dc desk.
== END 2020-05-07 09:52 | disposition home or self-care (01) ==
LOC: ED 07:22
DX: S39.012A Strain of muscle, fascia and tendon of lower back, initial encounter (principal); S33.5XXA Sprain of ligaments of lumbar spine, initial encounter; R11.2 Nausea with vomiting, unspecified; R06.4 Hyperventilation; R10.13 Epigastric pain; Z88.8 Allergy status to other drugs, medicaments and biological substances; X58.XXXA Exposure to other specified factors, initial encounter; Y93.89 Activity, other specified; Y92.89 Other specified places as the place of occurrence of the external cause; Y99.8 Other external cause status
CPT/HCPCS: 36415; 76700; 80053; 81003; 83690; 85025; 96361; 96374; 99284; J2765; J7030